=== PATIENT | female | born 1980 | race American Indian/Alaskan Native ===

== ENCOUNTER 2021-12-16 03:40 | Emergency (ER) | payer OTHER ==
[2021-12-16] MEDS ORDERED: TETANUS,DIPH,PERTUSS(ACELL) VACCINE 0.5 ML SYRINGE IM ONE (04:21)
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
[2021-12-16] MEDS ORDERED: ACETAMINOPHEN 325 MG TAB PO ONE (05:32)
[2021-12-16] MEDS ORDERED: IBUPROFEN 600 MG TAB PO ONE (05:32)
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
[2021-12-16 06:09] VITALS: BP 131/87
--- NOTE | 2021-12-16 18:19 | Electrocardiograph Report ---
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
== END 2021-12-16 07:00 ==
LOC: ED 03:40
DX: S09.90XA Unspecified injury of head, initial encounter (principal); M79.632 Pain in left forearm; F10.129 Alcohol abuse with intoxication, unspecified; I10 Essential (primary) hypertension; V89.2XXA Person injured in unspecified motor-vehicle accident, traffic, initial encounter; Y93.89 Activity, other specified; Y92.89 Other specified places as the place of occurrence of the external cause; Y99.8 Other external cause status
CPT/HCPCS: 70450; 71045; 72125; 90471; 90715; 93005; 99284